=== PATIENT | female | born 2000 | race Two or more races ===

== ENCOUNTER 2022-07-14 01:19 | Emergency (ER) | payer OTHER ==
[~2022-07-14] VITALS: Ht 163.8 cm; Wt 85.7 kg
[2022-07-14] MEDS ORDERED: IBUPROFEN 400 MG TAB ONE (02:16)
[2022-07-14 02:22] VITALS: BP 105/66; PULSE 66; RESP 18; TEMP 97.2; O2SAT 99
[2022-07-14] MEDS ORDERED: IBUPROFEN 400 MG TAB PO ONE (02:30)
== END 2022-07-14 02:22 | disposition home or self-care (01) ==
LOC: FSED 01:23
DX: M77.51 Other enthesopathy of right foot and ankle (principal)
CPT/HCPCS: 99283